=== PATIENT | male | born 2000 | race Caucasian/White ===

== ENCOUNTER 2025-07-21 10:55 | Outpatient (CLI) | payer BC, OTHER, SELFPAY ==
--- NOTE | 2025-07-21 11:00 | CA_ITS ---
APPROVED REPORT EXAM: Comprehensive 2D, Doppler, and color-flow Echocardiogram [place] Rail[employer]: [id number] Ht: 6 ft 2 in Wt: 176lbs BSA: 2.06 BP: 132/73 mmHg Indications: Abnormal ECG, Chest Pain, Shortness of Breath, Fatigue, Ehler Danlos type IV (vascular subtype). 2D Dimensions LA Volume 19.40 mL LA Volume Index 9.20 mL/m2 (M/F) 16-34 M-Mode Dimensions RVDd 2.33 cm (0.9-2.6) LA Diam 2.68 cm (1.9-4.0) LVDd 3.49 cm (3.5-5.7) LVDs 2.44 cm (3.5-5.7) IVSd 1.22 cm (0.6-1.1) PWd 0.47 cm (0.6-1.1) EF (Teich) 58.40% FS 30.10% EDV (Teich) 50.50 mL ESV (Teich) 21.00 mL LV Diastology E Decel Time 150 (160-240 msec) E/A Ratio 1.28 MED A' 6.40 cm/s LAT A' 8.00 cm/s Aortic Valve AO Peak GR. 6.20 mmHg Mitral Valve MV E Max Sudhir. 85.0 (40-130 cm/s) MV A Velocity 66.0 (40-130 cm/s) E/A Ratio 1.28 MV PHT 44.0 ms Pulmonary Valve PV Peak Velocity 74.0 (50-150 cm/s) Tricuspid Valve TR P. Velocity 246.00 cm/s RAP Estimate 10.00 mmHg RVSP 34.30 mmHg Left Ventricle The left ventricle is normal size. Left ventricular systolic function is normal. The left ventricular ejection fraction is within the normal range. There is normal left ventricular wall thickness. There is normal LV segmental wall motion. The left ventricular diastolic function is normal. LVEF is 55% Right Ventricle The right ventricle is normal size. The right ventricular systolic function is normal. Atria The left atrium size is normal. The right atrium size is normal. There is no color Doppler evidence of interatrial shunt. Aortic Valve The aortic valve opens well. There is no hemodynamically significant aortic valvular stenosis. No aortic regurgitation is present. Mitral Valve The mitral valve is normal in structure. No evidence of mitral valve stenosis. Trace mitral regurgitation is present. Tricuspid Valve The tricuspid valve leaflets are thin and pliable. Trace tricuspid regurgitation. There is insufficient TR jet to estimate RVSP. Pulmonic Valve The pulmonary valve is grossly normal in structure. Trace pulmonic valve regurgitation is present. Great Vessels The aortic root is normal in size. The ascending aorta is normal in size. IVC is normal in size and collapses >50% with inspiration. Pericardium There is no pericardial effusion. Conclusion Normal biventricular systolic function. No significant valvular stenosis or regurgitation. The aortic root and ascending aorta are normal in size. Electronically signed by : Malia Erwin MD 07/26/2025 14:22:47
--- NOTE | 2025-07-21 11:34 | XR_ITS ---
FINAL REPORT CLINICAL HISTORY: PA lateral COMPARISON: None FINDINGS: No acute pulmonary density is evident. There is no evidence of effusion or other pleural disease. The mediastinum has a normal appearance. The cardiac silhouette is unremarkable. IMPRESSION: Unremarkable chest exam. Reviewed, Interpreted and Dictated by Kenrick Lizarraga MD Transcribed by [facility] Authenticated and [facility]
--- OUTSIDE RECORDS SUMMARY | 2025-07-21 12:38 | XMS_ITS | Clinical Summary ---
Author Organization [facility] Address [facility] [place] [address] Care Team Providers Care Medical Office Receptionist Name Role Phone David Katz MD Primary Care Provider [phone] Source Comments [facility] is fully rolled out with thefollowing exceptions:General Clinical Research [facility] Allergies Active Allergy Reactions Criticality Noted Date Comments Amoxicillin Rash 09/07/2011 Codeine 12/20/2017 Had reaction with tylenol with codeine Latex Red Dye Rash 09/07/2011 Acetaminophen Rash 09/07/2011 Medications cetirizine (ZyrTEC) 10 MG tablet Take 1 Tab (10 mg total) by mouth 1 time a day as needed for allergies or congestion. Takes in afternoon 8 Active loratadine (CLARITIN) 10 MG tablet Take 1 Tab (10 mg total) by mouth 1 time a day as needed for allergies or congestion. 8 Active bisacodyl (DULCOLAX) 10 MG suppository Insert 1 Suppository (10 mg total) into the rectum every day as needed for constipation. 9 Active ibuprofen (MOTRIN) 200 MG tablet Take 3 Tabs (600 mg total) by mouth every 6 hours as needed for mild pain or moderate pain. 9 Active polyethylene glycol 3350 (MIRALAX) 8.5 gm powder Take 1 Packet (8.5 gm total) by mouth 2 times a day. 9 Active senna (EX-LAX) 15 MG chewable tablet Chew 2 Tabs (30 mg total) every evening. 9 Active diazePAM (VALIUM) 5 MG tabletIndicatio ns:Primary spontaneous pneumothorax,Hy permobility syndrome,Muscle spasm Take 1 Tab (5 mg total) by mouth at bedtime as needed for muscle spasms, anxiety or agitation. This prescription contains 5 days' supply. 5 Tab 9 Active Active Problems Problem Noted Date Diagnosed Date Primary spontaneous pneumothorax 12/25/2017 Chronic idiopathic constipation 03/25/2017 Insomnia 06/11/2014 Spells of decreased attentiveness 10/16/2013 Electroencephalogram (EEG) abnormality without s eizure 10/16/2013 Hypermobility syndrome 12/17/2011 Hypermobility of joint 09/07/2011 Family History Medical History Relation Name Comments ADHD/ADD Father Other Father Hypoglycemia Other Maternal Aunt hemophylia Diabetes Mellitus Maternal Grandfather Heart Attack Maternal Grandfather Arrhythmia Maternal Grandmother Diabetes Mellitus Maternal Grandmother Headaches Maternal Grandmother Hypertension Maternal Grandmother Other Maternal Grandmother fibromy algia Thyroid Disease Maternal Grandmother Headaches Mother Other Mother murmur Relation Name Status Comments Father Alive Maternal Aunt Maternal Grandfather Maternal Grandmother Alive Mother Alive Social History Tobacco Use Types Packs/Day Years Used Date Smoking Tobacco: Never Smokeless Tobacco: Never Alcohol Use Standard Drinks/Week Comments No 0 (1 standard drink = 0.6 oz pur e alcohol) Intimate Partner Violence Answer Date R ecorded If you are in a relationship , do you feel safe in that relationship? Yes 04/26/2019 If you are in a relationship , do you feel safe in that relationship? Not currently in a relationship 04/26/2019 Safety and Environment Answer Date Hao rded Do you have any concerns of physical abuse, sexual abuse, or neglect of your child? No 04/26/2019 Is an adult hurting you or your family? No 04/26/2019 Has someone ever touched you in a sexual way that was not ok with you? No 04/26/2019 Is someone hurting your or your family? No 04/26/2019 Historical abuse worry Not on file 9 If you have firearms in the home, are they all in locked storage AND unloaded? Not on file 04/26/2019 Sex and Gender Information Value Date Recorded Sex Assigned at Not on file Legal Sex Male 5:37 AM EST Gender Identity Not on file Sexual Orientation Not on file Last Filed Vital Signs Vital Sign Reading Time Taken Comments Blood Pressure 100/67 05/02/2019 9:31 AM EDT Pulse 122 05/02/2019 9:31 AM EDT Temperature 37.2 C (99 F) 05/02/2019 9:31 AM EDT Respiratory Rate 17 05/02/2019 9:31 AM EDT Oxygen Saturation 98% 05/02/2019 9:31 AM EDT Inhaled Oxygen Concentration - - Weight 56.5 kg (124 lb 9 oz) 05/14/2019 12:00 PM EDT Height 182.2 cm (5' 11.73 ) 05/14/2019 12:00 PM EDT Body Mass Index 17.02 05/14/2019 12:00 PM EDT Plan of Treatment Health Maintenance Due Date Last Done Comments IPV IMMUNIZATION (4 of 4 - 4-dose series) 2005 10/02/2002, 2001, 2001 Yearly Physical Ages 3-18+ 03/31/2013 03/31/2012 HPV IMMUNIZATION (1 - Male 3-dose series) 2016 DTAP/Tdap/Td IMMUNIZATION (6 - Td or Tdap) 03/31/2022 03/31/2012, 10/02/2002, 2001, Additional history exists AMB SEASONAL FLU VACCINE (#1) 04/05/2025 COVID-19 Vaccine (1 - season) 2025 PNEUMOCOCCAL IMMUNIZATION Aged Out 2001, No longer eligible based on patient's age to complete this topic HEPATITIS B IMMUNIZATION Completed 002, 2001, 2001 HIB IMMUNIZATION Completed 06/19/2002, , 2001, Additional history exists MCV4 IMMUNIZATION Aged Out 03/31/2012 No longer eligible based on patient's age to complete this topic MMR IMMUNIZATION Completed 03/31/2012, 03/27/2002 VARICELLA IMMUNIZATION Completed 03/31/2012, 2001 MENINGOCOCCAL B VACCINE Aged Out No l onger eligible based on patient's age to complete this topic Respiratory Syncytial Virus (RSV) <20mo Aged Out No longer eligible based on patient's age to complete this topic Insurance [employer] NON-TRADITIONAL [id number] [id number] Care Teams Medical Office Receptionist Relationship Specialty Start Date End Date David Katz MD [address] [place], [place] [id number] PCP - General 06/04/14
== END 2025-07-21 23:59 | disposition home or self-care (01) ==
LOC: RT 10:58
PROVIDERS: Visit Provider Internal Medicine
DX: I51.7 Cardiomegaly (principal)
CPT/HCPCS: 71046; 93306